=== PATIENT | female | born 1960 ===

== ENCOUNTER 2018-04-21 10:12 | Outpatient (CLI) | payer OTHER | END 2018-04-21 10:13 | disposition home or self-care (01) | LOC: C.MAMMO 10:12 | DX: R92.8 Other abnormal and inconclusive findings on diagnostic imaging of breast (principal) ==

== ENCOUNTER 2018-06-08 10:48 | Outpatient (CLI) | payer OTHER | END 2018-06-08 10:49 | disposition home or self-care (01) | LOC: C.LAB 10:48 | DX: E03.9 Hypothyroidism, unspecified (principal) ==

== ENCOUNTER → 2018-06-11 | Outpatient (CLI) | payer OTHER | LOC: C.USIC 13:34 | DX: E03.9 Hypothyroidism, unspecified (principal) ==